=== PATIENT | female | born 1970 | race Two or more races ===

== ENCOUNTER 2021-10-14 12:59 | Outpatient (REF) | payer OTHER, SELFPAY ==
--- NOTE | ~2021-10-14 | XR_ITS ---
EXAMINATION: LEFT ELBOW, LEFT KNEE, LEFT TIB-FIB CLINICAL INFORMATION: Pain COMPARISON: None TECHNIQUE: 3 views left elbow, 4 views left knee, 2 views left tib-fib FINDINGS: Left elbow: No bone, joint or soft tissue abnormality is seen. Left knee: There are mild degenerative changes with narrowing of the medial compartment with some sclerosis and minimal osteophyte formation. The lateral compartment is well preserved. Patellofemoral compartment is well preserved. No joint effusion is seen. No fractures. Left tib-fib: No significant bone, joint or soft tissue abnormality is seen XR/XR elbow LT min 3V IMPRESSION: There are mild degenerative changes in the knee with narrowing of the medial compartment. No other abnormalities are detected.
--- NOTE | ~2021-10-14 | XR_ITS ---
EXAMINATION: LEFT ELBOW, LEFT KNEE, LEFT TIB-FIB CLINICAL INFORMATION: Pain COMPARISON: None TECHNIQUE: 3 views left elbow, 4 views left knee, 2 views left tib-fib FINDINGS: Left elbow: No bone, joint or soft tissue abnormality is seen. Left knee: There are mild degenerative changes with narrowing of the medial compartment with some sclerosis and minimal osteophyte formation. The lateral compartment is well preserved. Patellofemoral compartment is well preserved. No joint effusion is seen. No fractures. Left tib-fib: No significant bone, joint or soft tissue abnormality is seen XR/XR tibia fibula LT 2V IMPRESSION: There are mild degenerative changes in the knee with narrowing of the medial compartment. No other abnormalities are detected.
--- NOTE | ~2021-10-14 | XR_ITS ---
EXAMINATION: LEFT ELBOW, LEFT KNEE, LEFT TIB-FIB CLINICAL INFORMATION: Pain COMPARISON: None TECHNIQUE: 3 views left elbow, 4 views left knee, 2 views left tib-fib FINDINGS: Left elbow: No bone, joint or soft tissue abnormality is seen. Left knee: There are mild degenerative changes with narrowing of the medial compartment with some sclerosis and minimal osteophyte formation. The lateral compartment is well preserved. Patellofemoral compartment is well preserved. No joint effusion is seen. No fractures. Left tib-fib: No significant bone, joint or soft tissue abnormality is seen XR/XR knee LT 4V IMPRESSION: There are mild degenerative changes in the knee with narrowing of the medial compartment. No other abnormalities are detected.
== END 2021-10-14 13:00 | disposition home or self-care (01) ==
LOC: HO.HMGCX 12:59
DX: M25.522 Pain in left elbow (principal); M25.562 Pain in left knee; M79.662 Pain in left lower leg
CPT/HCPCS: 73080; 73564; 73590